=== PATIENT | female | born 1955 | race Caucasian/White ===

== ENCOUNTER → 2020-02-27 | Outpatient (CLI) | payer MEDICARE ==
[~2020-02-27] MED LIST: ASPIRIN325 PO; CIPRO500 MG PO; CIPROFLOXACIN500 M3 PO; COLACE100 MG PO; MUCINEX600 MG PO; OXYCODONE HCL 55 MG PO; PERCOCET 5-3251 EACH PO; PERCOCET PO; PHENERGAN 25 MG25 M1 PO; XARELTO10 MG PO
== END ==
LOC: M.RAD 02-25 09:23
PROVIDERS: ATTEND Nurse Practitioner Family
DX: Z12.31 Encounter for screening mammogram for malignant neoplasm of breast (principal); N63.20 Unspecified lump in the left breast, unspecified quadrant; Z78.0 Asymptomatic menopausal state

== ENCOUNTER → 2020-02-28 | Outpatient (CLI) | payer MEDICARE ==
[~2020-02-28] MED LIST changes: +CALCIUM + VITA1 EACH PO; +FLEXERIL PO; +FOSAMAX 70 MG T70 MG PO; +KEFLEX500 M1 PO; +LIPITOR 20 MG T20 M1 PO; +NORCO 5-325 TA1 EAC2 PO
== END ==
LOC: M.ULTRA 12:47
PROVIDERS: ATTEND Nurse Practitioner Family
DX: N63.20 Unspecified lump in the left breast, unspecified quadrant (principal)

== ENCOUNTER 2020-03-02 07:50 | Emergency (ER) | payer MEDICARE ==
[~2020-03-02] VITALS: Ht 157.5 cm; Wt 72.6 kg
[~2020-03-02 07:50] MED LIST changes: -CALCIUM + VITA1 EACH PO; -FLEXERIL PO; -FOSAMAX 70 MG T70 MG PO; -KEFLEX500 M1 PO; -LIPITOR 20 MG T20 M1 PO; -NORCO 5-325 TA1 EAC2 PO
[2020-03-02] MEDS ORDERED: FOSAMAX 70 MG T70 MG PO (08:02)
[2020-03-02] MEDS ORDERED: LIPITOR 20 MG T20 M1 PO (08:02)
[2020-03-02] MEDS ORDERED: CALCIUM + VITA1 EACH PO (08:03)
[2020-03-02 08:30] LABS: ABSOLUTE LYMPHOCYTES 0.9 thou/uL (0.8-5.3); ABSOLUTE MONOCYTES 0.6 thou/uL (0.0-1.2); ABSOLUTE NEUTROPHILS 6.7 thou/uL (1.6-8.1); BASOPHILS 0.4 %; EOSINOPHILS 0.3 %; HEMATOCRIT 42.3 % (37.0-47.0); HEMOGLOBIN 14.1 gm/dL (12.0-15.0); LYMPHOCYTES 10.7 %; MCH 29.8 pg (26.0-34.0); MCHC 33.5 g/dL (28.0-37.0); MCV 89.2 fL (80.0-100.0); MONOCYTES 7.4 %; MPV 9.9 fl. (7.2-11.1); NUCLEATED RBCS 0 /100WBC; PLATELET COUNT* 229 thou/uL (150-400); POLYS 81.2 %; RBC 4.74 mil/uL (4.20-5.00); RDW-CV 12.7 % (10.5-14.5); WBC 8.2 thou/uL (4.0-11.0)
[2020-03-02 08:30] LABS: URINE BILIRUBIN NEGATIVE (Negative); URINE BLOOD NEGATIVE (Negative); URINE CLARITY CLEAR; URINE COLOR YELLOW; URINE GLUCOSE-RANDOM NEGATIVE (Negative); URINE KETONES NEGATIVE (Negative); URINE LEUKOCYTES-REFLEX 1+ (Negative); URINE PROTEIN NEGATIVE (Negative); URINE UROBILINOGEN 0.2 E.U./dl (0.2-1.0)
[2020-03-02 08:35] LABS: URINE NITRITE-REFLEX POSITIVE (Negative)
[2020-03-02 08:36] LABS: CREATININE 1.1 mg/dL (0.6-1.3); POTASSIUM 4.6 mmol/L (3.5-5.1)
[2020-03-02 08:41] LABS: ALBUMIN 3.5 g/dL (3.4-5.0); TOTAL BILIRUBIN 0.7 mg/dL (<0.1-1.0)
[2020-03-02 08:42] LABS: BACTERIA-REFLEX >30 Many /HPF (None Seen); CASTS None Seen /LPF (None Seen); CRYSTALS None Seen /LPF (None Seen); MUCUS 0-3 Light strn/LPF (None Seen); SQUAMOUS 4-10 Moderate /LPF (0-3); URINE RBC 0-2 Rare /HPF (0-2)
[2020-03-02] MEDS ORDERED: KEFLEX500 M1 PO (09:38)
[2020-03-02] MEDS ORDERED: FLEXERIL PO (09:38)
[2020-03-02] MEDS ORDERED: NORCO 5-325 TA1 EAC2 PO (09:38)
[2020-03-02 09:52] VITALS: BP 104/68
== END 2020-03-02 09:54 | disposition home or self-care (01) ==
LOC: M.ERS 07:50
PROVIDERS: Emergency Medicine Emergency Medical Services
DX: N39.0 Urinary tract infection, site not specified (principal); M54.5 Low back pain; E78.00 Pure hypercholesterolemia, unspecified; M81.0 Age-related osteoporosis without current pathological fracture; F17.210 Nicotine dependence, cigarettes, uncomplicated

== ENCOUNTER → 2021-03-16 | Outpatient (CLI) | payer MEDICARE ==
[~2021-03-16] MED LIST changes: +CALCIUM + VITA1 EACH PO; +FLEXERIL PO; +FOSAMAX 70 MG T70 MG PO; +KEFLEX500 M1 PO; +LIPITOR 20 MG T20 M1 PO; +NORCO 5-325 TA1 EAC2 PO
== END ==
LOC: M.RAD 03-03 15:15
PROVIDERS: ATTEND Nurse Practitioner Family
DX: Z12.31 Encounter for screening mammogram for malignant neoplasm of breast (principal); M85.88 Other specified disorders of bone density and structure, other site; N63.20 Unspecified lump in the left breast, unspecified quadrant; M81.8 Other osteoporosis without current pathological fracture

== ENCOUNTER → 2021-03-16 | Outpatient (CLI) | payer OTHER | LOC: M.CT 07:41 | PROVIDERS: ATTEND Nurse Practitioner Family | DX: Z13.6 Encounter for screening for cardiovascular disorders (principal); I25.10 Atherosclerotic heart disease of native coronary artery without angina pectoris ==

== ENCOUNTER → 2021-04-21 | Outpatient (CLI) | payer MEDICARE ==
--- NOTE | 2021-04-21 17:36 | CARDNUC ---
[place] [address] CARDIAC NUCLEAR IMAGING REPORT Name: DENYS VERGARA Room: [facility]#: [id number] Admission: 04/21/21 Attend Phys: Dara Johnson Discharge: Date of : 55 Date of Service: 04/21/21 1736 Report #: [id number] THIS REPORT FOR: cc: SEVEN AMADOR NP, KATHERINE NP Liston, Michael J. MD [facility] ~ APPROVED REPORT Imaging Protocol: Rest Tc-99m/Stress Tc-99m 1 day Study performed: 04/21/2021 07:30:00 Indication: Elevated calcium scoring CT score Patient Location: Out-Patient Stress Tech: Mitzi [employer] Stress Nurse: Isabel Harris RN NM Tech:ABDIRAHMAN Garcia Ht: 5 ft 0 in Wt: 163 lbs BSA: 1.71 m2 HR: 69 bpm BP: 128/72 mmHg BMI: 31.83 Rhythm: NSR Medical History Medical History: Hyperlipidemia, Former Smoker Medications: No cardiac medications Allergies: No known drug allergies Cardiac Risk Factors: FHX of CAD, Hyperlipidemia, Tobacco History (Former) Previous Cardiac Procedures: N/A Pretest Chest Pain Characteristics: No chest pain Physical Disabilities: N/A Meds Held (24 hrs): N/A Meds Held (48 hrs): N/A Resting Data Rest SPECT myocardial perfusion imaging was performed in supine position 30 minutes following the intravenous injection of 10.8 mCi of Tc-99m Sestamibi. Time of rest injection: 0755 Date: 04/21/2021 The images were gated to evaluate regional wall motion and calculate left ventricular ejection fraction. Administration Route: [place] [address] CARDIAC NUCLEAR IMAGING REPORT Name: DENYS VERGARA Room: [facility]#: [id number] Admission: 04/21/21 Attend Phys: Dara Johnson Discharge: Date of : 55 Date of Service: 04/21/21 1736 Report #: [id number] At peak stress, the patient was injected intravenously with 31.9mCi of Tc-99m Sestamibi. Time of stress injection: 0900 Date: 04/21/2021 Administration Route: IV Gated Stress SPECT was performed 40 minutes after stress injection. The images were gated to evaluate regional wall motion and calculate left ventricular ejection fraction. Prone imaging was performed. Stress Test Details Stress Test: Exercise stress testing was performed using a Johann protocol. HR Max Heart Rate (APMHR): 154 bpm Resting HR: 69 bpm Target HR (85% APMHR): 130 bpm Max HR Achieved: 146 bpm % of APMHR: 94 Recovery HR: 88 bpm BP Resting BP: 128/72 mmHg Max BP: 189/69 mmHg Recovery BP: 153/67 mmHg ECG Resting ECG: Sinus Rhythm Stress ECG: Sinus Tachycardia ST Change: None Arrhythmia: None Recovery ECG: Sinus Rhythm Recovery ST Change: None Recovery Arrhythmia: None Clinical Reason for Termination: Completed protocol Stress Symptoms: Dyspnea The patient denied any significant chest pain with standard Johann protocol exercise. Nurse Comments Pt experienced SOA with greater speed and incline which resolved to baseline work of breathing by completion of study. Stress ECG Conclusion The baseline twelve-lead EKG shows sinus rhythm without significant ST segment or T wave abnormality. EKGs obtained [place] [address] CARDIAC NUCLEAR IMAGING REPORT Name: DENYS VERGARA Room: [facility]#: [id number] Admission: 04/21/21 Attend Phys: Dara Johnson Discharge: Date of : 55 Date of Service: 04/21/21 1736 Report #: [id number] exercise show sinus rhythm and sinus tachycardia with no significant ST segment or T wave changes when compared to baseline. There were no stress-induced arrhythmias. Study Quality Study: Good Artifact: No artifact Study Data At rest, the left ventricular ejection fraction was 72%.. Post stress, the left ventricular ejection was 71%.. TID = 1.02. Perfusion Perfusion images obtained at rest and post exercise stress show uniform uptake of the radioisotope throughout the myocardium. There were no defects to suggest infarct or ischemia. Wall Motion Normal left ventricular wall motion. Nuclear Conclusion ECG Findings: negative for ischemia Clinical Findings: negative for ischemia Nuclear Findings: negative for ischemia Exercise Capacity: Fair Left Ventricular Function: normal Risk Study: low Perfusion images show no defect to suggest infarct or ischemia. Left ventricular systolic function appears normal on gated studies. This is a low risk study. <Conclusion> The baseline twelve-lead EKG shows sinus rhythm without significant ST segment or T wave abnormality. EKGs obtained during and post exercise show sinus rhythm and sinus tachycardia with no significant ST segment or T wave changes when compared to baseline. There were no stress-induced arrhythmias. <ELECTRONICALLY SIGNED> By: Nehemiah Perales MD, FACC 04/21/21 1736 [id number] Nehemiah Perales MD, FACC /INF
== END ==
LOC: M.NUC 04-06 16:24
PROVIDERS: ATTEND Internal Medicine
DX: R93.89 Abnormal findings on diagnostic imaging of other specified body structures (principal); E78.00 Pure hypercholesterolemia, unspecified; Z82.49 Family history of ischemic heart disease and other diseases of the circulatory system; Z87.891 Personal history of nicotine dependence